=== PATIENT | male | born 1950 | race Caucasian/White ===

== ENCOUNTER → 2018-02-04 | Outpatient (CLI) | payer OTHER ==
[~2018-02-04] MED LIST: APAP500 PO; ASPIRIN81 M2; FISH OIL 1,001000 M1; FLOMAX0.4 MG PO; GLUCOPHAGE500 MG; IBUPROFEN200 M2; PERCOCET 5-3251 EACH PO; PROSTATE HEALT1 EACH; SIMVASTATIN10 MG
== END ==
LOC: RAD 08:59
DX: N20.2 Calculus of kidney with calculus of ureter (principal); M47.816 Spondylosis without myelopathy or radiculopathy, lumbar region

== ENCOUNTER → 2018-02-09 | Outpatient (CLI) | payer OTHER | LOC: RAD 09:54 | DX: N20.2 Calculus of kidney with calculus of ureter (principal); R19.5 Other fecal abnormalities ==

== ENCOUNTER → 2018-08-05 | Outpatient (CLI) | payer OTHER | LOC: RAD 13:51 | DX: N20.2 Calculus of kidney with calculus of ureter (principal); I87.8 Other specified disorders of veins ==

== ENCOUNTER → 2019-08-10 | Outpatient (CLI) | payer OTHER | LOC: RAD 09:14 | DX: N20.2 Calculus of kidney with calculus of ureter (principal); R19.5 Other fecal abnormalities ==

== ENCOUNTER 2020-08-14 07:52 | Emergency (ER) | payer OTHER ==
[~2020-08-14] VITALS: Ht 185.4 cm; Wt 102.1 kg
[2020-08-14 08:35] LABS: URINE BILIRUBIN NEGATIVE (Negative); URINE BLOOD NEGATIVE (Negative); URINE CLARITY CLEAR; URINE COLOR YELLOW; URINE GLUCOSE-RANDOM* NEGATIVE (Negative); URINE KETONES NEGATIVE (Negative); URINE LEUKOCYTES-REFLEX NEGATIVE (Negative); URINE NITRITE-REFLEX NEGATIVE (Negative); URINE PROTEIN (DIPSTICK) NEGATIVE (Negative); URINE UROBILINOGEN 0.2 E.U./dl (0.2-1.0)
[2020-08-14 09:12] LABS: ABSOLUTE NEUTROPHILS 6.9 thou/uL (1.4-8.2); BASOPHILS 0.3 % (0.0-2.0); EOSINOPHILS 0.3 % (0.0-3.0); HEMATOCRIT 39.2 % (42.0-52.0); HEMOGLOBIN 13.3 gm/dL (14.0-18.0); LYMPHOCYTES 6.5 % (24.0-44.0); MCH 31.5 pg (26.0-34.0); MCHC 33.9 g/dL (28.0-37.0); MCV 92.9 fL (80.0-100.0); MONOCYTES 8.6 % (1.0-8.0); PLATELET COUNT 154 thou/uL (150-400); POLYS 84.3 % (36.0-66.0); RBC 4.22 mil/uL (4.50-6.00); RDW 12.8 % (10.5-14.5); WBC 8.2 thou/uL (4.0-11.0)
[2020-08-14 09:19] LABS: ANION GAP 9 mmol/L (7-16); BUN 12 mg/dL (7-18); CALCIUM 9.1 mg/dL (8.5-10.1); CHLORIDE 103 mmol/L (98-107); CO2 24 mmol/L (21-32); GLUCOSE 187 mg/dL (74-106); POTASSIUM 3.9 mmol/L (3.5-5.1); SODIUM 136 mmol/L (136-145)
[2020-08-14 09:29] LABS: ALBUMIN 3.4 g/dL (3.4-5.0); LIPASE 130 U/L (73-393); SGOT 109 U/L (15-37); SGPT 252 U/L (30-65); TOTAL BILIRUBIN 0.9 mg/dL (0.2-1.0); TOTAL PROTEIN 7.7 g/dL (6.4-8.2); TROPONIN-I <0.06 ng/mL (<0.06)
--- NOTE | 2020-08-14 10:33 | EKG ---
[place] [address] [place] [address] ELECTROCARDIOGRAM REPORT Name: LUCY DAVIDSON Room #: REG JUAN Stein#: [id number] Admission: 08/14/20 Attend Phys: Discharge: Date of : 52 Report #: [id number] [facility] ED Test Date: 2020-08-14 Test Time: 08:32:01 Pat Name: LUCY DAVIDSON Department: Room: Gender: M Sole Skiver: : 1950 Requested By: Valarie Lindsey Order Number: [id number] MD: Miguel Mahajan Measurements Intervals Gardner Rate: 84 P: 69 WA: 189 QRS: 8 QRSD: 88 T: 20 QT: 373 QTc: 441 Interpretive Statements Sinus rhythm Borderline low voltage, extremity leads RSR' in V1 or V2, probably normal variant Compared to ECG 03/29/2015 07:24:56 RSR' in V1 or V2 now present Sinus tachycardia no longer present Electronically Signed On 08-14-2020 10:33:09 CDT by Miguel Mahajan [email or web address] <ELECTRONICALLY SIGNED> By: Miguel Mahajan MD, [facility] 08/14/20 1033 1 1 Miguel Mahajan MD, FACC /EPI
[2020-08-14 12:43] VITALS: BP 123/80
== END 2020-08-14 12:43 | disposition home or self-care (01) ==
LOC: ER 07:52
PROVIDERS: Emergency Medicine
DX: K80.50 Calculus of bile duct without cholangitis or cholecystitis without obstruction (principal); Z20.822 Contact with and (suspected) exposure to COVID-19; R74.01 Elevation of levels of liver transaminase levels; E11.9 Type 2 diabetes mellitus without complications; E78.5 Hyperlipidemia, unspecified; Z87.442 Personal history of urinary calculi; Z79.899 Other long term (current) drug therapy; Z79.82 Long term (current) use of aspirin

== ENCOUNTER → 2020-08-16 | Outpatient (CLI) | payer OTHER | LOC: RAD 14:10 | PROVIDERS: ATTEND Specialist | DX: N20.2 Calculus of kidney with calculus of ureter (principal) ==

== ENCOUNTER 2020-08-29 09:36 | Observation (INO) | payer OTHER ==
[~2020-08-29] VITALS: Ht 185.4 cm; Wt 100.7 kg
[~2020-08-29 09:36] MED LIST changes: +ASPIRIN EC81 M1 PO; -ASPIRIN81 M2; +COSOPT OCUMETER10 M1 OPHTHALMIC; +FISH OIL 1,0001 EAC9 PO; -FISH OIL 1,001000 M1; +GLUCOPHAGE1000 MG PO; +ONE-DAILY MULT1 EAC1 PO; +PROSTATE HEALT1 EAC1 PO; -PROSTATE HEALT1 EACH; +SIMVASTATIN40 MG PO
[2020-08-29 11:11] VITALS: BP 141/86
[2020-08-29] MEDS ORDERED: HYDROCODON-ACE1 EAC7 PO (13:27)
--- NOTE | 2020-08-29 16:03 | NUR ---
Pt transferred to unit from PACU. Dressings c/d/i. Pain controlled with prn pain meds. IVF infusing. Pt encouraged to ambulate. Possible d/c to home later tonight if pt feels better and safe to go home. Family at bedside. Call light within reach. Will continue to monitor.
[2020-08-29 16:59] VITALS: BP 157/96
[2020-08-29 20:45] VITALS: BP 136/85
--- NOTE | 2020-08-29 22:43 | NUR ---
ASSUMED CARE OF PT AT SHIFT CHANGE. PT IS AOX4 AND LETS NEEDS BE KNOWN. PT IS POST OP DAY 0. ASSESSMENT CHARTED. 5X LAP SITES ARE C/D/I. PT HAD FSBG OF 311, HOWEVER PT DID NOT WANT INSULIN. IV ACCESS REMOVED. PT WAS DISCHARGED TO HOME WITH AT 2200HRS IN STABLE CONDITION. DC INSTRUCTIONS PROVIDED.
[2020-08-29 22:47] VITALS: BP 136/85
--- NOTE | 2020-09-05 12:07 | PATH ---
[facility] [address] [address] PATHOLOGY RPT PROCEDURE Name: JUAN A DAVIDSON Room #: 443-P FLAKITA Stein#: [id number] Admission: 08/29/20 Date of : 52 Discharge: 08/29/20 Report #: [id number] Path Case #: [id number] [facility] Accession Number: [id number] . 01 Material submitted: . PART A: gallbladder - GALLBLADDER PART B: liver - LIVER BIOPSY RIGHT LOBE. Modifiers: right, LOBE . 01 Clinical history: . LAPAROSCOPIC CHOLECYSTECTOMY WITH G.... BIOPSY LIVER (CLOSED) HERNIA REPAIR, UMBILICAL CHOLECYSTITIS . 02 Diagnosis: A. 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 - Lithiasis. - Cholesterolosis. - Negative for malignancy. . B. 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 . (JARED:pop; 09/01/2020) MBR 09/05/2020 1121 Local . 02 Electronically signed: . Salina Paige MD, Pathologist NPI- [id number] . 01 Gross description: . A. Fixative: formalin Labeled: gallbladder Specimen received: partially collapsed Dimensions: 8.5 x 4.5 x 3 cm Serosa: smooth grove green Lymph node: not identified Mucosa: velvety-without obvious lesions Average wall thickness: 0.4 cm Calculi: Multiple brown-black measuring up to 0.3 cm Abnormalities: None . Ring Maker body, fundus, and the cystic duct margin in cassette A1. . [facility] [address] [place] [address] PATHOLOGY RPT PROCEDURE Name: JUAN A DAVIDSON ROXANNE Room #: [address] [place] [address] M.RSaniya#: [id number] Admission: 08/29/20 Date of : 52 Discharge: 08/29/20 Report #: [id number] Path Case #: [id number] B. The specimen is received in formalin, labeled "Juan A Davidson, liver biopsy right lobe" received as 3 soft ward tissue cores measuring up to 1.6 x less than 0.1cm entirely submitted in B1-B2. ([facility]; 08/30/2020) DEEDEE/DEEDEE 08/30/2020 1617 Local . 02 Microscopic: . B. A needle biopsy of the liver is available for review. There is bridging septal fibrosis with probable cirrhosis. The fibrous bands and remnant portal tracts display a minimal to mild mixed inflammatory infiltrate. Lymphocytes predominate, with occasional plasma cells, rare eosinophils and neutrophils identified. The interface activity is minimal. Interlobular bile ducts are seen within the portal tracts examined. They demonstrate minimal epithelial injury. There is no evidence of granulomatous inflammation. Prominent ductular reaction is not evident. . The hepatic parenchyma shows moderate to severe steatosis (50-60%). Both large and medium sized fat vesicles are identified. There are areas of ballooning degeneration of hepatocytes present, with focally prominent Mitzi-Denk bodies within hepatocyte cytoplasm. Sinusoidal inflammatory cells are mixed. Lymphocytes, occasional neutrophils, rare plasma cells and eosinophils are present. Apoptotic body formation is rare. . The trichrome stain highlights the bridging bands of cirrhosis. There are focal areas of perisinusoidal fibrosis. The reticulin stain shows an overall intact hepatic reticulin framework pattern, excision in the areas of most pronounced steatosis. Hepatic plates are irregularly thickened, compatible with regenerative nodule formation. The PAS stain highlights intracytoplasmic hepatocellular glycogen. The PAS-D stain fails to identify PAS-D positive intracytoplasmic hepatocellular globules. Occasional ceroid-laden Kupffer cells are seen. The iron stain is negative. . Special stains (blocks B1 and B2): PAS with and without diastase, iron, trichrome and reticulin. . (JARED:pop; 09/01/2020) . 02 Pathologist provided ICD-10: K80.10, K82.4, K75.81 . 02 CPT . 616217, 180282, 010262, 836072, 581984, 517623, 483964, 517315, 733064, 578596, 350536, 138072 Specimen Comment: A courtesy copy of this report has been sent to [phone], [phone] Specimen Comment: [phone] [facility] [address] [place] [address] PATHOLOGY RPT PROCEDURE Name: DAVIDSON,JUAN A ROXANNE Room #: 443-P DIS Jace Stein#: [id number] Admission: 08/29/20 Date of : 52 Discharge: 08/29/20 Report #: [id number] Path Case #: [id number] Specimen Comment: Report sent to / DR FLORENTINO Performed at: 01 [facility] [address] [place] [address] [id number] MD Pedro Henriquez MD Phone: [phone] Performed at: 02 [facility] [address] [place] [address] [id number] MD Yehuda Larson MD Phone: [phone]
--- NOTE | 2020-09-07 12:51 | O ---
[facility] [place] [address] OPERATIVE REPORT Name: LUCY DAVIDSON Room #: 443-P [facility] Jaec Stein#: [id number] Admission: 08/29/20 Attend Phys: Aristides Ford MD Discharge: 08/29/20 Date of : 52 Report #: [id number] THIS REPORT FOR: cc: David Bhatti MD, Rene P. MD Chu, Peter Y. MD ~ DOC #: [id number] cc: MD Aristides Werner MD DATE OF SERVICE: 08/29/2020 PREOPERATIVE DIAGNOSIS: Cholecystitis with cholelithiasis. POSTOPERATIVE DIAGNOSIS: 1. Cholecystitis with cholelithiasis. 2. Nodular appearing liver/fatty liver, questionable fibrosis. 3. Umbilical hernia. PROCEDURES PERFORMED: 1. Laparoscopic cholecystectomy with intraoperative cholangiogram. 2. Repair of umbilical hernia. 3. Needle biopsy of liver. ANESTHESIA: General. SURGEON: Aristides Ford MD. ESTIMATED BLOOD LOSS: 15 mL. COMPLICATIONS: None. DESCRIPTION OF PROCEDURE: With the patient under general anesthesia, abdomen was prepped and draped in sterile fashion. The patient has a small umbilical hernia present. Timeout was performed. Preoperative IV antibiotic was administered. 0.25% Marcaine was used to anesthetize the skin infraumbilically. Curvilinear incision was made infraumbilically. The skin of the umbilicus was dissected free from the fascia and there is a small properitoneal fat that is protruding through the fascia defect. The fascial edges were isolated and cleaned off. The patient did have a centimeter and a half umbilical hernia. Fascial edges was identified and 0 Vicryl sutures were placed on the fascia for retraction. With the abdominal wall lifted anteriorly, Veress needle was then placed through peritoneum. Abdominal cavity was insufflated with CO2. After creating pneumoperitoneum, an 11 mm trocar was placed through the fascia defect of the umbilicus. Through the peritoneum under visualization, no harm to the underlying tissue. Laparoscopic evaluation showed a moderately distended [address] [address] OPERATIVE REPORT Name: LUCY DAVIDSON ROXANNE Room #: 443-P FLAKITA Stein#: [id number] Admission: 08/29/20 Attend Phys: Aristides Ford MD Discharge: 08/29/20 Date of : 52 Report #: [id number] stomach. OG was placed by anesthesia. Did achieve some decompression of the stomach. Rest of the abdomen looked unremarkable. Two 5 mm trocars were placed in the right upper quadrant, another 5 mm trocar placed in the epigastrium. Fundus of the gallbladder was identified. The gallbladder was fairly distended. The gallbladder had to be decompressed with a needle and after drawing the bowel off the gallbladder it was then able to be grasped. The gallbladder was lifted over the liver. The gallbladder was lifted cephalad. There is adhesion identified in the ventral surface of the gallbladder. Adhesions were taken down. This also freed the duodenum from the proximal gallbladder. No harm to the duodenum. The peritoneum was dissected free laterally and then also medially. The junction of the gallbladder to the cystic duct was fibrotic and also somewhat twisted and bent. The lymph node was identified. The cystic artery was found underneath the lymph node. The cystic artery was isolated, clipped x2 proximally and one distally and then divided. This allowed better view of the cystic duct. The fibrotic tissue was dissected free. A blunt laparoscopic peanut was also used for the dissection. There were multiple fibrous band. There is fibrous band over the cystic duct that was making it kinked. I suspect the patient may have passed stones through this area. After the cystic duct was isolated the junction of the gallbladder and the cystic duct was clipped. Opening was made in the cystic duct. Cholangiogram catheter was placed. I could only get the tip in. Fluoroscopic cholangiogram was obtained. The cholangiogram catheter was identified in the cystic duct. No harm to the common duct. Common duct filled out well without any filling defect. The cholangiogram catheter was then removed. The proximal cystic duct was then clipped x2 and divided. The liver was noted to have diffuse nodularity, small nodules. Possibly early fibrosis, possibly due to fatty liver. Biopsy will be obtained. The gallbladder was then freed from the liver bed using cautery without difficulty. The gallbladder was removed intact and then removed through the infraumbilical port. Gallbladder was opened off the field. It contained numerous blackish stones that measured about 2 mm in size. The liver bed was hemostatic. Liver biopsy was then performed of the medial segment of the left lobe of the liver. This is performed just medial to the gallbladder bed. Three separate core needles were obtained. Good specimen was obtained. The specimen was placed in a saline-soaked Telfa and will be put in formalin. Hemostasis was obtained with pressure with a piece of Surgicel. Surgicel was also placed on the bed of the liver. Irrigation was performed and irrigation was aspirated out. No bleeding was identified. Trocars were then removed. CO2 was evacuated as much as possible. The fascia defect at the umbilical hernia was closed with 0 PDS [id number] x2. The fascial tissue was fairly strong. The skin of the umbilicus was then tacked down to the fascia with 5-0 PDS. Skin was closed with 5-0 PDS subcuticular fashion. Steri-Strips were applied. Band-Aids applied. The patient tolerated the procedure well and was taken to recovery room. Aristides Ford MD [facility] [address] [place] [address] OPERATIVE REPORT Name: LUCY DAVIDSON Room #: 443-P [facility] Jace M.R.#: [id number] Admission: 08/29/20 Attend Phys: Aristides Ford MD Discharge: 08/29/20 Date of : 52 Report #: [id number] [facility] <ELECTRONICALLY SIGNED> By: Aristides Ford MD 09/07/20 1251 1548 1825 Aristides Ford MD /nt
== END 2020-08-29 22:00 | disposition home or self-care (01) ==
LOC: OR 09:36 → 4S 14:44 → OR 14:45 → 4S 22:00
PROVIDERS: ADMIT Surgery; ATTEND Surgery
DX: K80.10 Calculus of gallbladder with chronic cholecystitis without obstruction (principal); K42.9 Umbilical hernia without obstruction or gangrene; K76.0 Fatty (change of) liver, not elsewhere classified; E78.5 Hyperlipidemia, unspecified; Z79.899 Other long term (current) drug therapy
CPT/HCPCS: 50010; 50101; 50411; 50555; 50558; 51046; 51489; 51687; 52265; 53307; 53310; 55245; 55317; 56462; 56525; 56526; 58574; 62110; 62900; 70005